=== PATIENT | male | born 1950 | race Caucasian/White ===

== ENCOUNTER 2016-11-01 20:35 | Inpatient (IN) | payer OTHER, MEDICARE ==
[~2016-11-01] VITALS: Ht 180.3 cm; Wt 91.0 kg
[2016-11-01] MEDS ORDERED: DIPHTH/TETANUS/ACEL PERTUSSIS (BOOSTER) 0.5 ML VIAL/PFS IM ONE ×2 (20:43→21:28)
[2016-11-01] MEDS ORDERED: fentaNYL CITRATE 250 MCG/5 ML AMP ONE (20:43)
[2016-11-01] MEDS ORDERED: IOHEXOL 350 MG/ML 10 ML VIAL (for RAD DIAG) IV ONE (21:01)
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
[2016-11-01 21:15] LABS: AUTOMATED NEUTROPHIL # 9.7 TH/MM3 (1.8-7.7); BASOPHIL % 0.3 % (0.0-2.0); EOSINOPHIL # 0.1 TH/MM3 (0-0.4); EOSINOPHIL % 0.8 % (0.0-4.0); HEMATOCRIT 36.7 % (39.0-51.0); HEMO FLAGS DIFF FINAL; LYMPH % 24.6 % (9.0-44.0); LYMPHOCYTE # 3.5 TH/MM3 (1.0-4.8); MEAN CELL VOLUME 89.2 FL (80.0-100.0); MEAN CORPUSCULAR HEMOGLOBIN 30.6 PG (27.0-34.0); MEAN CORPUSCULAR HGB CONC 34.3 % (32.0-36.0); MONO % 5.2 % (0.0-8.0); NEUT % 69.1 % (16.0-70.0); PLATELET COUNT 321 TH/MM3 (150-450); RED BLOOD COUNT 4.11 MIL/MM3 (4.50-5.90); RED CELL DISTRIBUTION WIDTH 14.6 % (11.6-17.2); WHITE BLOOD COUNT 14.1 TH/MM3 (4.0-11.0)
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
[2016-11-01 21:18] LABS: I-STAT POTASSIUM 3.1 MMOL/L (3.5-4.9)
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
[2016-11-01 21:29] LABS: APTT (PATIENT) 25.7 SEC (24.3-30.1); PROTHROMBIN TIME - PATIENT 11.2 SEC (9.8-11.6)
[2016-11-01] MEDS ORDERED: HYDROmorphone HCL PF 1 MG/ML VIAL IV PUSH ONE ×2 (21:30→22:30)
[2016-11-01] MEDS ORDERED: LIDOCAINE 1%/EPINEPHrine 1:100,000 SOLN 20 ML VIAL INFIL ONE (22:30)
[2016-11-01] MEDS ORDERED: BACITRACIN TOP OINT 15 GM TUBE TOP ONE (22:30)
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
[2016-11-01 23:04] LABS: AMPHETAMINE, URINE NEG (NEG); BARBITURATES, URINE NEG (NEG); COCAINE, URINE NEG (NEG)
[2016-11-02] VITALS (7 sets, daily range): BP systolic 147–177; BP diastolic 83–100; PULSE 80–91; RESP 18–22; TEMP 96.6–98.7; O2SAT 91–98
[2016-11-02] MEDS ORDERED: NALOXONE HCL 0.4 MG/ML AMP IV PUSH PRN
[2016-11-02] MEDS ORDERED: SODIUM CHLORID 0.9% 500 ML IV SCH (01:15)
[2016-11-02] MEDS ORDERED: INSULIN HUMAN REGULAR 1,000 UNITS/10 ML VIAL SQ PRN (01:15)
[2016-11-02] MEDS: LACTATED RINGER'S 1000 ML IV SCH (01:15)
[2016-11-02] MEDS: HYDROmorphone HCL PF 1 MG/ML VIAL IV PUSH PRN ×5 (01:44→23:41)
[2016-11-02] MEDS: MAGNESIUM HYDROXIDE SUSP 30 ML CUP PO SCH ×2 (09:00→09:23)
[2016-11-02] MEDS ORDERED: DOCUSATE SODIUM 50 MG/SENNA 8.6 MG TAB PO SCH (09:00)
[2016-11-02] MEDS: ACETAMINOPHEN 1000 MG/100 ML VIAL IV SCH ×3 (09:22→19:45)
[2016-11-02] MEDS: LIDOCAINE HCL 5% PATCH TD SCH (09:22)
[2016-11-02] MEDS: METHOCARBAMOL 500 MG TAB PO SCH ×3 (09:22→23:41)
[2016-11-02] MEDS: FAMOTIDINE 20 MG TAB PO SCH ×2 (09:23→19:45)
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
[2016-11-02 10:03] LABS: MEAN CELL VOLUME 88.1 FL (80.0-100.0); MEAN CORPUSCULAR HGB CONC 35.2 % (32.0-36.0); PLATELET COUNT 290 TH/MM3 (150-450); RED BLOOD COUNT 3.86 MIL/MM3 (4.50-5.90); RED CELL DISTRIBUTION WIDTH 14.3 % (11.6-17.2); REVIEW FLAG FINAL; WHITE BLOOD COUNT 10.8 TH/MM3 (4.0-11.0)
[2016-11-02 10:36] LABS: ALT (GPT) 25 U/L (12-78); ANION GAP 12 MEQ/L (5-15); AST (GOT) 23 U/L (15-37); BICARBONATE 24.8 MEQ/L (21.0-32.0); BLOOD UREA NITROGEN 5 MG/DL (7-18); CHLORIDE 99 MEQ/L (98-107); GLOMERULAR FILTRATION RATE 150 ML/MIN (>89); POTASSIUM 3.5 MEQ/L (3.5-5.1); SODIUM (NA) 136 MEQ/L (136-145)
[2016-11-02 10:39] LABS: ALKALINE PHOSPHATASE 63 U/L (45-117); TOTAL BILIRUBIN ADULT 0.9 MG/DL (0.2-1.0)
[2016-11-02] MEDS ORDERED: BACITRACIN TOP OINT 15 GM TUBE TOP SCH (11:00)
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
[2016-11-02] MEDS: oxyCODONE/ACETAMINOPHEN 10 MG/325 MG TAB PO PRN ×2 (16:15→23:41)
--- NOTE | 2016-11-02 16:27 | HHI.PR ---
Subjective Subjective Notes Complains of uncontrolled back pain No appetite Objective Vitals/I&O Vital Signs Date Time Temp Pulse Resp B/P Pulse Ox O2 Delivery O2 Flow Rate FiO2 11/02/16 11:25 96.9 84 18 158/98 97 11/02/16 09:35 Nasal Cannula 2.00 Labs Laboratory Tests Test 11/01/16 11/01/16 11/02/16 20:47 22:35 09:39 White Blood Count 14.1 10.8 Red Blood Count 4.11 3.86 Hemoglobin 12.6 12.0 Bedside Hemoglobin 12.6 Hematocrit 36.7 34.0 Bedside Hematocrit 37.0 Mean Corpuscular Volume 89.2 88.1 Mean Corpuscular Hemoglobin 30.6 31.0 Mean Corpuscular Hemoglobin 34.3 35.2 Concent Red Cell Distribution Width 14.6 14.3 Platelet Count 321 290 Mean Platelet Volume 7.3 6.7 Neutrophils (%) (Auto) 69.1 Lymphocytes (%) (Auto) 24.6 Monocytes (%) (Auto) 5.2 Eosinophils (%) (Auto) 0.8 Basophils (%) (Auto) 0.3 Neutrophils # (Auto) 9.7 Lymphocytes # (Auto) 3.5 Monocytes # (Auto) 0.7 Eosinophils # (Auto) 0.1 Basophils # (Auto) 0.0 CBC Comment DIFF FINAL Differential Comment Prothrombin Time 11.2 Prothromb Time International 1.0 Ratio Activated Partial 25.7 Thromboplast Time Bedside Sodium 138 Bedside Potassium 3.1 Bedside Chloride 101 Bedside Blood Urea Nitrogen 10 Bedside Creatinine 0.8 Bedside Glucose 100 Ethyl Alcohol Level 77 Blood Type B POSITIVE Antibody Screen NEGATIVE Urine Opiates Screen POS Urine Barbiturates Screen NEG Urine Amphetamines Screen NEG Urine Benzodiazepines Screen NEG Urine Cocaine Screen NEG Urine Cannabinoids Screen NEG Sodium Level 136 Potassium Level 3.5 Chloride Level 99 Carbon Dioxide Level 24.8 Anion Gap 12 Blood Urea Nitrogen 5 Creatinine 0.48 Estimat Glomerular Filtration 150 Rate Random Glucose 117 Calcium Level 8.3 Total Bilirubin 0.9 Aspartate Amino Transf 23 (AST/SGOT) Alanine Aminotransferase 25 (ALT/SGPT) Alkaline Phosphatase 63 Total Protein 7.0 Albumin 3.4 Radiology Last Impressions Shoulder X-Ray 11/01/162046 Signed Impressions: Service Date/Time: Tuesday, November 01, 2016 20:29 - CONCLUSION: 1. Displaced left scapular fracture extending through body and glenoid region. Multiple left rib fractures. Ky Garcia MD Pelvis X-Ray 11/01/162044 Signed Impressions: Service Date/Time: Tuesday, November 01, 2016 20:29 - CONCLUSION: 1. No acute findings. Postoperative right hip replacement. Ky Garcia MD Head CT 11/01/162044 Signed Impressions: Service Date/Time: Tuesday, November 01, 2016 20:48 - CONCLUSION: 1. No acute intracranial abnormalities. Fluid in sphenoid sinus. Ky Garcia MD Chest X-Ray 11/01/162044 Signed Impressions: Service Date/Time: Tuesday, November 01, 2016 20:29 - CONCLUSION: 1. Multiple left-sided rib fractures and left scapular fracture. No pneumothorax identified. CT pending. Ky Garcia MD Chest CT 11/01/162044 Signed Impressions: Service Date/Time: Tuesday, November 01, 2016 20:55 - CONCLUSION: 1. Left clavicle fracture, left scapular fracture and multiple left rib fractures involving the third through ninth ribs with small left-sided extrapleural hematoma, mild left lung contusion and dependent atelectasis in both lungs. 2. Tiny left pneumothorax. 3. No mediastinal hematoma or evidence for traumatic aortic injury. Ky Garcia MD Cervical Spine CT 11/01/162044 Signed Impressions: Service Date/Time: Tuesday, November 01, 2016 20:48 - CONCLUSION: Multilevel degenerative changes as above. No fracture or acute appearing malalignment of the cervical spine. Candelario Menchaca MD Abdomen/Pelvis CT 11/01/162044 Signed Impressions: Service Date/Time: Tuesday, November 01, 2016 20:52 - CONCLUSION: 1. No visceral organ injury or other acute abnormality of the abdomen or pelvis. 2. Sigmoid colon diverticulosis without diverticulitis. Candelario Menchaca MD Narrative Exam GENERAL: Well-nourished, well developed male sitting at the side of the bed. SKIN: Warm and dry. Abrasions noted to right forehead, left shoulder and right forearm. HEAD: Normocephalic. ENT: No nasal bleeding or discharge. Mucous membranes pink and moist. NECK: Trachea midline. No JVD. CARDIOVASCULAR: Regular rate and rhythm. RESPIRATORY: No accessory muscle use. Lungs clear to auscultation. Breath sounds equal bilaterally. GASTROINTESTINAL: Abdomen soft, non-tender, nondistended. + BS. MUSCULOSKELETAL: Extremities without cyanosis, or edema. Left arm sling. NEUROLOGICAL: Awake and alert. Normal speech. A/P Assessment and Plan INJURIES: Displaced LEFT scapula fx LEFT clavicle fx LEFT rib fx (3-9) Small left extraplural hematoma LEFT lung contusion Small LEFT PTX Aspiration PMHx: RIGHT hip replacement, HTN Diet: Regular, decreased appetite Pulm: IS, encouraged patient use Pain: Dilaudid, Robaxin, Ofirmev, Lidoderm. Added Percocet for better pain control. Activity: OOB, PT ordered. (NWB LUE) - maintain sling. GI: Pepcid Bowel: Holly-colace, MOM. No BM yet DVT: SCDs CXR today still shows left small pneumothorax. Repeat CXR in a.m. Hypertensiontakes medication at home for blood pressure, but patient does not know what medication is. We'll start him on Lisinopril. Wound care: Cleanse abrasions twice a day with normal saline. Leave wounds open to air. Apply bacitracin twice a day. If draining May cover with Telfa and wrapped with Wanda. Orthopedics planning left clavicle plating sometime this week. Plan of care discussed with patient at bedside. Deborah Turk Nov 02, 2016 16:27
[2016-11-02] MEDS: LISINOPRIL 10 MG TAB PO SCH (17:40)
--- NOTE | 2016-11-02 19:04 | EKG ---
Date Performed: 11/02/2016 Time Performed: 02:14:42 PTAGE: 89 years EKG: Possible ectopic atrial rhythm. Inferior/lateral ST-T changes are nonspecific Borderline EC G NO PREVIOUS TRACING DOCTOR: Sukhjinder Chinchilla Interpretating Date/Time 11/02/2016 19:03:41
[2016-11-02] MEDS: DOCUSATE SODIUM 50 MG/SENNA 8.6 MG TAB PO SCH (19:46)
[2016-11-02] MEDS: REMOVE OLD PATCH T-DERMAL SCH (19:46)
[2016-11-02] MEDS: BACITRACIN TOP OINT 15 GM TUBE TOP SCH (19:49)
[2016-11-03] VITALS (8 sets, daily range): BP systolic 134–144; BP diastolic 79–88; PULSE 71–107; RESP 17–20; TEMP 96–98.9; O2SAT 91–97
[2016-11-03] MEDS: ACETAMINOPHEN 1000 MG/100 ML VIAL IV SCH (03:00)
[2016-11-03] MEDS: oxyCODONE/ACETAMINOPHEN 10 MG/325 MG TAB PO PRN ×3 (05:15→19:37)
[2016-11-03 06:19] LABS: AUTOMATED NEUTROPHIL # 9.2 TH/MM3 (1.8-7.7); BASOPHIL % 0.2 % (0.0-2.0); EOSINOPHIL % 0.2 % (0.0-4.0); HEMATOCRIT 32.9 % (39.0-51.0); HEMO FLAGS DIFF FINAL; LYMPH % 7.3 % (9.0-44.0); LYMPHOCYTE # 0.8 TH/MM3 (1.0-4.8); MEAN CORPUSCULAR HEMOGLOBIN 31.3 PG (27.0-34.0); MEAN CORPUSCULAR HGB CONC 35.6 % (32.0-36.0); MONO % 7.4 % (0.0-8.0); NEUT % 84.9 % (16.0-70.0); PLATELET COUNT 268 TH/MM3 (150-450); RED BLOOD COUNT 3.74 MIL/MM3 (4.50-5.90); RED CELL DISTRIBUTION WIDTH 13.9 % (11.6-17.2); WHITE BLOOD COUNT 10.8 TH/MM3 (4.0-11.0)
--- NOTE | 2016-11-03 06:41 | RADRPT ---
EXAM DATE/TIME: 11/03/2016 04:44 [facility] COMPARISON: CHEST SINGLE AP, November 02, 2016, 8:49. INDICATIONS : Pain left chest, left shoulder and back MEDICAL HISTORY : left pneumothorax, left rib and scapula fractures SURGICAL HISTORY : None. ENCOUNTER: Subsequent ACUITY: 4 - 6 days PAIN SCORE: 10/10 LOCATION: Left chest FINDINGS: Single AP view of the chest. Multiple left-sided rib fractures, scapular fracture, and clavicle fract ure again seen. Left sided pneumothorax measures 5 mm, decreased from 1.3 cm on the prior study. The lungs are clear. Cardiomediastinal silhouette unchanged. No evidence of pleural effusion. CONCLUSION: 1. Decrease in size of left pneumothorax. 2. Multiple left-sided fractures again seen. Raphael Shelton MD on November 03, 2016 at 6:36 Board Certified Radiologist. This report was verified electronically.
--- NOTE | 2016-11-03 07:09 | PD.ORT.PN ---
Subjective Subjective Remarks Resting comfortably. Dressings were applied with bacitracin yesterday over abrasions Objective Vitals Vital Signs Date Time Temp Pulse Resp B/P Pulse Ox O2 Delivery O2 Flow Rate FiO2 11/03/16 04:00 97.5 71 20 137/86 92 11/03/16 00:00 97.4 73 20 136/86 93 11/02/16 19:35 92 21 11/02/16 17:07 80 152/91 11/02/16 16:04 98.7 86 18 177/100 98 11/02/16 11:25 96.9 84 18 158/98 97 11/02/16 09:35 95 Nasal Cannula 2.00 11/02/16 07:19 96.8 91 18 147/83 91 I/O 11/02/16 11/02/16 11/02/16 11/03/16 11/03/16 11/03/16 07:00 15:00 23:00 07:00 15:00 23:00 Intake Total 0 ml 240 ml Output Total 675 ml 600 ml Balance -675 ml 240 ml -600 ml Intake Oral 0 ml 240 ml Output Urine Total 675 ml 600 ml # Voids 2 # Bowel Movements 0 0 0 Result Diagram: 11/03/16 0508 11/02/16 0939 Imaging Last 24 hours Impressions Shoulder X-Ray 11/01/162046 Signed Impressions: Service Date/Time: Tuesday, November 01, 2016 20:29 - CONCLUSION: 1. Displaced left scapular fracture extending through body and glenoid region. Multiple left rib fractures. Ky Garcia MD Pelvis X-Ray 11/01/162044 Signed Impressions: Service Date/Time: Tuesday, November 01, 2016 20:29 - CONCLUSION: 1. No acute findings. Postoperative right hip replacement. Ky Garcia MD Head CT 11/01/162044 Signed Impressions: Service Date/Time: Tuesday, November 01, 2016 20:48 - CONCLUSION: 1. No acute intracranial abnormalities. Fluid in sphenoid sinus. Ky Garcia MD Chest X-Ray 11/01/162044 Signed Impressions: Service Date/Time: Tuesday, November 01, 2016 20:29 - CONCLUSION: 1. Multiple left-sided rib fractures and left scapular fracture. No pneumothorax identified. CT pending. Ky Garcia MD Chest CT 11/01/162044 Signed Impressions: Service Date/Time: Tuesday, November 01, 2016 20:55 - CONCLUSION: 1. Left clavicle fracture, left scapular fracture and multiple left rib fractures involving the third through ninth ribs with small left-sided extrapleural hematoma, mild left lung contusion and dependent atelectasis in both lungs. 2. Tiny left pneumothorax. 3. No mediastinal hematoma or evidence for traumatic aortic injury. Ky Garcia MD Cervical Spine CT 11/01/162044 Signed Impressions: Service Date/Time: Tuesday, November 01, 2016 20:48 - CONCLUSION: Multilevel degenerative changes as above. No fracture or acute appearing malalignment of the cervical spine. Candelario Menchaca MD Abdomen/Pelvis CT 11/01/162044 Signed Impressions: Service Date/Time: Tuesday, November 01, 2016 20:52 - CONCLUSION: 1. No visceral organ injury or other acute abnormality of the abdomen or pelvis. 2. Sigmoid colon diverticulosis without diverticulitis. Candelario Menchaca MD Objective Remarks Left upper extremity: Abrasion over clavicle. Pain with movement of shoulder. Full motion of the elbow wrist and fingers. He has intact sensation over the radial ulnar median nerve distributions. Full extension and flexion of all fingers Assessment & Plan Assessment and Plan 1) Left Clavicle and SCapula Fxs Potential surgery for left clavicle may be necessary. At this time it is lined up well. Due to abrasions incision could not be made at this time. Nonweightbearing maintain sling and swath with no motion of shoulder Continue bacitracin and Adaptic over all abrasions We'll plan on discharge from orthopedic standpoint and follow-up with orthopedic in home. TEODORA LI PA-C Nov 03, 2016 07:09
[2016-11-03 07:12] LABS: ALT (GPT) 22 U/L (12-78); ANION GAP 12 MEQ/L (5-15); AST (GOT) 20 U/L (15-37); BICARBONATE 26.4 MEQ/L (21.0-32.0); BLOOD UREA NITROGEN 6 MG/DL (7-18); CHLORIDE 97 MEQ/L (98-107); GLOMERULAR FILTRATION RATE 171 ML/MIN (>89); POTASSIUM 3.1 MEQ/L (3.5-5.1); SODIUM (NA) 135 MEQ/L (136-145)
[2016-11-03 07:15] LABS: ALKALINE PHOSPHATASE 53 U/L (45-117); TOTAL BILIRUBIN ADULT 0.8 MG/DL (0.2-1.0)
[2016-11-03] MEDS ORDERED: POTASSIUM CHLORIDE 20 MEQ CONTROLLED RELEASE TAB PO ONE (07:15)
[2016-11-03] MEDS: MAGNESIUM HYDROXIDE SUSP 30 ML CUP PO SCH (08:55)
[2016-11-03] MEDS: LISINOPRIL 10 MG TAB PO SCH (09:00)
[2016-11-03] MEDS: DOCUSATE SODIUM 50 MG/SENNA 8.6 MG TAB PO SCH ×2 (09:00→20:41)
[2016-11-03] MEDS: BACITRACIN TOP OINT 15 GM TUBE TOP SCH ×2 (09:00→20:41)
[2016-11-03] MEDS: LIDOCAINE HCL 5% PATCH TD SCH (09:00)
[2016-11-03] MEDS: FAMOTIDINE 20 MG TAB PO SCH ×2 (09:01→20:41)
[2016-11-03] MEDS: FOLIC ACID 1 MG TAB PO SCH (09:01)
[2016-11-03] MEDS: METHOCARBAMOL 500 MG TAB PO SCH ×2 (09:01→18:09)
[2016-11-03] MEDS: MULTIVITAMIN TAB PO SCH (09:01)
[2016-11-03] MEDS: THIAMINE HCL 100 MG TAB PO SCH (09:01)
[2016-11-03] MEDS: HYDROmorphone HCL PF 1 MG/ML VIAL IV PUSH PRN ×3 (09:12→21:55)
--- NOTE | 2016-11-03 18:18 | HHI.PR ---
Subjective Subjective Notes Complains of left clavicle pain Objective Vitals/I&O Vital Signs Date Time Temp Pulse Resp B/P Pulse Ox O2 Delivery O2 Flow Rate FiO2 11/03/16 11:42 96.9 74 19 143/79 91 11/03/16 08:04 Nasal Cannula 21 11/02/16 09:35 2.00 Labs Laboratory Tests Test 11/03/16 05:08 White Blood Count 10.8 Red Blood Count 3.74 Hemoglobin 11.7 Hematocrit 32.9 Mean Corpuscular Volume 88.0 Mean Corpuscular Hemoglobin 31.3 Mean Corpuscular Hemoglobin 35.6 Concent Red Cell Distribution Width 13.9 Platelet Count 268 Mean Platelet Volume 7.1 Neutrophils (%) (Auto) 84.9 Lymphocytes (%) (Auto) 7.3 Monocytes (%) (Auto) 7.4 Eosinophils (%) (Auto) 0.2 Basophils (%) (Auto) 0.2 Neutrophils # (Auto) 9.2 Lymphocytes # (Auto) 0.8 Monocytes # (Auto) 0.8 Eosinophils # (Auto) 0.0 Basophils # (Auto) 0.0 CBC Comment DIFF FINAL Differential Comment Sodium Level 135 Potassium Level 3.1 Chloride Level 97 Carbon Dioxide Level 26.4 Anion Gap 12 Blood Urea Nitrogen 6 Creatinine 0.43 Estimat Glomerular Filtration 171 Rate Random Glucose 91 Calcium Level 8.4 Total Bilirubin 0.8 Aspartate Amino Transf 20 (AST/SGOT) Alanine Aminotransferase 22 (ALT/SGPT) Alkaline Phosphatase 53 Total Protein 6.8 Albumin 3.0 Radiology Last Impressions Shoulder X-Ray 11/01/162046 Signed Impressions: Service Date/Time: Tuesday, November 01, 2016 20:29 - CONCLUSION: 1. Displaced left scapular fracture extending through body and glenoid region. Multiple left rib fractures. Ky Garcia MD Pelvis X-Ray 11/01/162044 Signed Impressions: Service Date/Time: Tuesday, November 01, 2016 20:29 - CONCLUSION: 1. No acute findings. Postoperative right hip replacement. Ky Garcia MD Head CT 11/01/162044 Signed Impressions: Service Date/Time: Tuesday, November 01, 2016 20:48 - CONCLUSION: 1. No acute intracranial abnormalities. Fluid in sphenoid sinus. Ky Garcia MD Chest X-Ray 11/01/162044 Signed Impressions: Service Date/Time: Tuesday, November 01, 2016 20:29 - CONCLUSION: 1. Multiple left-sided rib fractures and left scapular fracture. No pneumothorax identified. CT pending. Ky Garcia MD Chest CT 11/01/162044 Signed Impressions: Service Date/Time: Tuesday, November 01, 2016 20:55 - CONCLUSION: 1. Left clavicle fracture, left scapular fracture and multiple left rib fractures involving the third through ninth ribs with small left-sided extrapleural hematoma, mild left lung contusion and dependent atelectasis in both lungs. 2. Tiny left pneumothorax. 3. No mediastinal hematoma or evidence for traumatic aortic injury. Ky Garcia MD Cervical Spine CT 11/01/162044 Signed Impressions: Service Date/Time: Tuesday, November 01, 2016 20:48 - CONCLUSION: Multilevel degenerative changes as above. No fracture or acute appearing malalignment of the cervical spine. Candelario Menchaca MD Abdomen/Pelvis CT 11/01/162044 Signed Impressions: Service Date/Time: Tuesday, November 01, 2016 20:52 - CONCLUSION: 1. No visceral organ injury or other acute abnormality of the abdomen or pelvis. 2. Sigmoid colon diverticulosis without diverticulitis. Candelario Menchaca MD Narrative Exam GENERAL: Well-nourished, well developed male sitting at the side of the bed. SKIN: Warm and dry. Abrasions noted to right forehead and right forearm. Dressing to left shoulder c/d/i. HEAD: Normocephalic. ENT: No nasal bleeding or discharge. Mucous membranes pink and moist. NECK: Trachea midline. No JVD. CARDIOVASCULAR: Regular rate and rhythm. RESPIRATORY: No accessory muscle use. Lungs clear to auscultation. Breath sounds equal bilaterally. GASTROINTESTINAL: Abdomen soft, non-tender, nondistended. + BS. MUSCULOSKELETAL: Extremities without cyanosis, or edema. Left arm sling. NEUROLOGICAL: Awake and alert. Normal speech. A/P Assessment and Plan INJURIES: Displaced LEFT scapula fx LEFT clavicle fx LEFT rib fx (3-9) Small left extraplural hematoma LEFT lung contusion Small LEFT PTX Aspiration PMHx: RIGHT hip replacement, HTN Diet: Regular, decreased appetite Pulm: IS, encouraged patient use Pain: Dilaudid, Robaxin, Lidoderm. Percocet. Added Neurontin. Activity: OOB, PT ordered. (NWB JAMI) - maintain sling. GI: Pepcid Bowel: Holly-colace, MOM. No BM yet DVT: SCDs CXR today still shows left small pneumothorax. Repeat CXR in a.m. Hypertensionon lisinopril Orthopedics planning left clavicle plating sometime this week. Plan of care discussed with patient at bedside. Deborah Turk Nov 03, 2016 18:18 Orthopedics planning left clavicle plating sometime this week. Plan of care discussed with patient at bedside. Deborah Turk Nov 03, 2016 18:18
[2016-11-03] MEDS: GABAPENTIN 300 MG CAP PO SCH (18:38)
[2016-11-03] MEDS: REMOVE OLD PATCH T-DERMAL SCH (20:49)
[2016-11-04] VITALS: BP 131/86; PULSE 84; RESP 16; TEMP 97.5; O2SAT 92
[2016-11-04] MEDS: oxyCODONE/ACETAMINOPHEN 10 MG/325 MG TAB PO PRN ×6 (00:09→22:44)
[2016-11-04] MEDS: METHOCARBAMOL 500 MG TAB PO SCH ×3 (00:09→18:23)
[2016-11-04] MEDS: LACTATED RINGER'S 1000 ML IV SCH (01:15)
[2016-11-04] MEDS: HYDROmorphone HCL PF 1 MG/ML VIAL IV PUSH PRN (03:19)
[2016-11-04 08:00] VITALS: BP 132/89; PULSE 79; RESP 16; TEMP 96.2; O2SAT 93
[2016-11-04] MEDS: LIDOCAINE HCL 5% PATCH TD SCH (08:11)
[2016-11-04] MEDS: MULTIVITAMIN TAB PO SCH (08:11)
[2016-11-04] MEDS: FAMOTIDINE 20 MG TAB PO SCH ×2 (08:11→21:08)
[2016-11-04] MEDS: DOCUSATE SODIUM 50 MG/SENNA 8.6 MG TAB PO SCH ×2 (08:12→21:08)
[2016-11-04] MEDS: THIAMINE HCL 100 MG TAB PO SCH (08:12)
[2016-11-04] MEDS: FOLIC ACID 1 MG TAB PO SCH (08:12)
[2016-11-04] MEDS: MAGNESIUM HYDROXIDE SUSP 30 ML CUP PO SCH (08:12)
[2016-11-04] MEDS: GABAPENTIN 300 MG CAP PO SCH ×3 (08:12→18:23)
[2016-11-04] MEDS: BACITRACIN TOP OINT 15 GM TUBE TOP SCH ×2 (08:17→21:09)
[2016-11-04] MEDS: LISINOPRIL 10 MG TAB PO SCH (08:33)
--- NOTE | 2016-11-04 10:13 | PD.ORT.PN ---
Subjective Subjective Remarks Resting comfortably. Still having difficulty with pain control over ribs Objective Vitals Vital Signs Date Time Temp Pulse Resp B/P Pulse Ox O2 Delivery O2 Flow Rate FiO2 11/04/16 08:00 96.2 79 16 132/89 93 11/04/16 00:00 97.5 84 16 131/86 92 11/03/16 20:00 92 Room Air 11/03/16 20:00 98.9 107 17 142/86 92 11/03/16 19:47 96 21 11/03/16 15:23 96.8 81 19 134/88 91 11/03/16 11:42 96.9 74 19 143/79 91 I/O 11/03/16 11/03/16 11/03/16 11/04/16 11/04/16 11/04/16 07:00 15:00 23:00 07:00 15:00 23:00 Intake Total 480 ml 240 ml 240 ml Output Total 600 ml 300 ml 250 ml Balance -600 ml 480 ml -60 ml -10 ml Intake Oral 480 ml 240 ml 240 ml Output Urine Total 600 ml 300 ml 250 ml # Voids 2 # Bowel Movements 0 1 0 0 1 Result Diagram: 11/03/16 0508 11/03/16 0508 Imaging Last 24 hours Impressions Shoulder X-Ray 11/01/162046 Signed Impressions: Service Date/Time: Tuesday, November 01, 2016 20:29 - CONCLUSION: 1. Displaced left scapular fracture extending through body and glenoid region. Multiple left rib fractures. Ky Garcia MD Pelvis X-Ray 11/01/162044 Signed Impressions: Service Date/Time: Tuesday, November 01, 2016 20:29 - CONCLUSION: 1. No acute findings. Postoperative right hip replacement. Ky Garcia MD Head CT 11/01/162044 Signed Impressions: Service Date/Time: Tuesday, November 01, 2016 20:48 - CONCLUSION: 1. No acute intracranial abnormalities. Fluid in sphenoid sinus. Ky Garcia MD Chest X-Ray 11/01/162044 Signed Impressions: Service Date/Time: Tuesday, November 01, 2016 20:29 - CONCLUSION: 1. Multiple left-sided rib fractures and left scapular fracture. No pneumothorax identified. CT pending. Ky Garcia MD Chest CT 11/01/162044 Signed Impressions: Service Date/Time: Tuesday, November 01, 2016 20:55 - CONCLUSION: 1. Left clavicle fracture, left scapular fracture and multiple left rib fractures involving the third through ninth ribs with small left-sided extrapleural hematoma, mild left lung contusion and dependent atelectasis in both lungs. 2. Tiny left pneumothorax. 3. No mediastinal hematoma or evidence for traumatic aortic injury. Ky Garcia MD Cervical Spine CT 11/01/162044 Signed Impressions: Service Date/Time: Tuesday, November 01, 2016 20:48 - CONCLUSION: Multilevel degenerative changes as above. No fracture or acute appearing malalignment of the cervical spine. Candelario Menchaca MD Abdomen/Pelvis CT 11/01/162044 Signed Impressions: Service Date/Time: Tuesday, November 01, 2016 20:52 - CONCLUSION: 1. No visceral organ injury or other acute abnormality of the abdomen or pelvis. 2. Sigmoid colon diverticulosis without diverticulitis. Candelario Menchaca MD Objective Remarks Left upper extremity: Abrasion over clavicle. Pain with movement of shoulder. Full motion of the elbow wrist and fingers. He has intact sensation over the radial ulnar median nerve distributions. Full extension and flexion of all fingers Assessment & Plan Assessment and Plan 1) Left Clavicle and SCapula Fxs Potential surgery for left clavicle may be necessary. At this time alignment is appropriate and conservative measures may be continued. Nonweightbearing maintain sling and swath with no motion of shoulder Continue bacitracin and Adaptic over all abrasions We'll plan on discharge from orthopedic standpoint and follow-up with orthopedic in home. TEODORA LI PA-C Nov 04, 2016 10:13
[2016-11-04 11:49] VITALS: BP 127/88; PULSE 73; RESP 16; TEMP 97.1; O2SAT 92
[2016-11-04] MEDS ORDERED: METH500T3 PO (12:09)
[2016-11-04] MEDS ORDERED: LIDO5DIS35 TD (12:09)
[2016-11-04] MEDS ORDERED: NEUR300C PO (12:09)
[2016-11-04] MEDS ORDERED: LISI10TA3 PO (15:44)
[2016-11-04] MEDS ORDERED: OXYC1TAB36 PO (15:44)
[2016-11-04] MEDS ORDERED: BACI500O2 TOP (15:44)
[2016-11-04] MEDS ORDERED: SENN1TAB PO (15:44)
[2016-11-04] MEDS ORDERED: MILKSUS PO (15:44)
[2016-11-04 16:05] VITALS: BP 130/88; PULSE 74; RESP 16; TEMP 98.6; O2SAT 95
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
[2016-11-04 20:10] VITALS: BP 99/69; PULSE 84; RESP 18; TEMP 98.3; O2SAT 92
[2016-11-04] MEDS: REMOVE OLD PATCH T-DERMAL SCH (21:00)
[2016-11-04 23:20] VITALS: BP 112/78; PULSE 75; RESP 18; TEMP 96.7; O2SAT 93
[2016-11-05] MEDS: LACTATED RINGER'S 1000 ML IV SCH (01:15)
[2016-11-05] MEDS: METHOCARBAMOL 500 MG TAB PO SCH ×2 (01:40→09:36)
[2016-11-05] MEDS: oxyCODONE/ACETAMINOPHEN 10 MG/325 MG TAB PO PRN ×2 (03:54→09:37)
[2016-11-05 08:00] VITALS: BP 128/84; PULSE 78; RESP 20; TEMP 96.2; O2SAT 93
[2016-11-05] MEDS: DOCUSATE SODIUM 50 MG/SENNA 8.6 MG TAB PO SCH (09:00)
[2016-11-05] MEDS: MAGNESIUM HYDROXIDE SUSP 30 ML CUP PO SCH (09:00)
[2016-11-05] MEDS: FOLIC ACID 1 MG TAB PO SCH (09:00)
[2016-11-05] MEDS: BACITRACIN TOP OINT 15 GM TUBE TOP SCH (09:00)
[2016-11-05] MEDS: LIDOCAINE HCL 5% PATCH TD SCH (09:36)
[2016-11-05] MEDS: THIAMINE HCL 100 MG TAB PO SCH (09:36)
[2016-11-05] MEDS: GABAPENTIN 300 MG CAP PO SCH (09:36)
[2016-11-05] MEDS: FAMOTIDINE 20 MG TAB PO SCH (09:36)
[2016-11-05] MEDS: MULTIVITAMIN TAB PO SCH (09:36)
[2016-11-05] MEDS: LISINOPRIL 10 MG TAB PO SCH (09:37)
[2016-11-11] MEDS ORDERED: [UNRECOGNIZED DRUG - OTHER] (08:17)
[2016-11-11] MEDS ORDERED: CIPR-9 PO (10:40)
[2016-11-11] MEDS ORDERED: SENN1TAB PO (10:40)
[2016-11-11] MEDS ORDERED: NEUR300C PO (10:40)
[2016-11-11] MEDS ORDERED: METH500T3 PO (10:40)
[2016-11-11] MEDS ORDERED: BACI500O2 TOP (10:40)
[2016-11-11] MEDS ORDERED: LISI10TA3 PO (10:40)
[2016-11-11] MEDS ORDERED: OXYC1TAB36 PO (10:40)
[2016-11-11] MEDS ORDERED: PERC5TAB12 PO (13:27)
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
== END 2016-11-05 11:55 | DRG 964 ==
LOC: NEPI 20:35 → EDBD 21:27 → NEDA 21:27 → N06A 11-02 01:40
PROVIDERS: ADMIT Surgery; ATTEND Surgery
PROC: 0HQFXZZ Repair Right Hand Skin, External Approach (ICD-10-PCS; principal; 2016-11-01)
DX: S27.321A Contusion of lung, unilateral, initial encounter (principal); S22.42XA Multiple fractures of ribs, left side, initial encounter for closed fracture; S06.9X1A Unspecified intracranial injury with loss of consciousness of 30 minutes or less, initial encounter; S27.0XXA Traumatic pneumothorax, initial encounter; S42.032A Displaced fracture of lateral end of left clavicle, initial encounter for closed fracture; S42.112A Displaced fracture of body of scapula, left shoulder, initial encounter for closed fracture; S61.411A Laceration without foreign body of right hand, initial encounter; S40.812A Abrasion of left upper arm, initial encounter; S80.812A Abrasion, left lower leg, initial encounter; S00.81XA Abrasion of other part of head, initial encounter; S50.811A Abrasion of right forearm, initial encounter; I10 Essential (primary) hypertension; R40.2411 Glasgow coma scale score 13-15, in the field [EMT or ambulance]; V28.4XXA Motorcycle driver injured in noncollision transport accident in traffic accident, initial encounter; Y92.410 Unspecified street and highway as the place of occurrence of the external cause; Z96.641 Presence of right artificial hip joint
CPT/HCPCS: 12001; 70450; 71010; 71260; 72125; 72170; 73020; 74177; 80053; 80307; 82435; 82565; 82947; 84132; 84295; 84520; 85025; 85027; 85610; 85730; 86850; 86900; 86901; 90471; 90715; 93005; 94150; 96374; 99291; G0390; J0131; J1170; J3010; L0150; Q9967